=== PATIENT | male | born 1980 | race Caucasian/White ===

== ENCOUNTER 2021-12-05 15:40 | Inpatient (IN) | payer SELFPAY ==
[~2021-12-05] VITALS: Ht 157.5 cm; Wt 75.3 kg
[2021-12-05 16:53] LABS: BASOPHILS % 1.1 % (0.0-2.0); EOSINOPHILS % 7.2 % (0.0-5.0); HEMATOCRIT. 37.4 % (42.0-52.0); HEMOGLOBIN. 12.4 g/dL (14.0-18.0); LYMPHOCYTES % 13.7 % (20.0-50.0); MEAN CORPUSCULAR HEMOGLOBIN 31.1 pg (28.0-32.0); MEAN CORPUSCULAR VOLUME 93.4 fL (80.0-94.0); MEAN PLATELET VOLUME 7.8 fl (7.4-10.4); MONOCYTES % 9.7 % (2.0-8.0); NEUTROPHILS % 68.3 % (40.0-76.0); PLATELET 138 x1000/uL (130-400); RED CELL DISTRIBUTION WIDTH 15.2 % (11.6-14.6)
[2021-12-05 17:03] LABS: CHLORIDE 105 mEq/L (98-107)
[2021-12-05 17:04] LABS: INR 1.3; PROTHROMBIN TIME 13.4 sec (9.6-11.0)
[2021-12-05] MEDS ORDERED: LORAZEPAM 2MG/ML CPJ IV ONE (17:15)
[2021-12-05] MEDS ORDERED: ASPIRIN 325MG EC TABLET PO ONE (17:15)
[2021-12-05 17:18] LABS: ETHANOL BLOOD 13 mg/dL
[2021-12-05] MEDS ORDERED: FUROSEMIDE 20MG/2ML VIAL IVP NR (20:15)
[2021-12-05] MEDS ORDERED: NA PHOS,M-B/NA PHOS,DI-BA ENEMA 118ML PR PRN (21:15)
[2021-12-05] MEDS ORDERED: DOCUSATE SODIUM 100MG CAPSULE PO PRN (21:15)
[2021-12-05] MEDS ORDERED: ONDANSETRON HCL 4MG/2ML INJ IV PRN (21:15)
[2021-12-05] MEDS ORDERED: KETOROLAC 15MG/ML VIAL IV PRN (21:15)
[2021-12-05] MEDS ORDERED: IPRATROPIUM/ALBUTEROL 0.5-3(2.5)MG/3ML NEB NEB PRN (21:15)
[2021-12-05] MEDS ORDERED: CLONIDINE 0.1MG TABLET PO PRN (21:15)
[2021-12-05] MEDS ORDERED: ACETAMINOPHEN 325MG TABLET PO PRN ×2 (21:15)
[2021-12-05] MEDS ORDERED: ZOLPIDEM TARTRATE 5MG TABLET PO PRN (21:15)
[2021-12-05] MEDS ORDERED: MAGNESIUM/ALUMINUM HYDROXIDE/SIMETHICONE 30ML UDC PO PRN (21:15)
[2021-12-05] MEDS ORDERED: GUAIFENESIN 200MG/10ML SUGAR FREE UDC PO PRN (21:15)
[2021-12-05] MEDS ORDERED: NITROGLYCERIN 0.4MG TABLET SL SL PRN (21:15)
[2021-12-05] MEDS ORDERED: ENOXAPARIN 40MG/0.4ML SYR SUBCUT SCH (22:00)
[2021-12-05 22:29] LABS: CREATINE KINASE MB FRACTION 5.5 ng/mL (0.5-3.6)
[2021-12-05] MEDS ORDERED: POTASSIUM CHLORIDE 20MEQ TABLET SR PO NR (22:30)
[2021-12-05 22:47] LABS: PHOSPHORUS 3.4 mg/dL (2.5-4.9)
[2021-12-05 23:40] VITALS: BP 123/97
[2021-12-06] VITALS: BP 123/97
[2021-12-06 04:00] VITALS: BP 126/86
[2021-12-06 07:01] LABS: CREATINE KINASE MB FRACTION 5.3 ng/mL (0.5-3.6)
[2021-12-06 08:00] VITALS: BP 133/93
[2021-12-06] MEDS ORDERED: ASPIRIN 325MG EC TABLET PO SCH (09:00)
[2021-12-06] MEDS ORDERED: FAMOTIDINE 20MG TABLET PO SCH (09:00)
[2021-12-06] MEDS ORDERED: ASPI-1406 MT (10:31)
[2021-12-06 12:00] VITALS: BP 111/72
[2021-12-06 13:55] VITALS: BP 111/72
== END 2021-12-06 15:00 | disposition home or self-care (01) | DRG 190 ==
LOC: ER 15:40 → MICUSO 20:49 → 8WST 23:51
PROVIDERS: ADMIT Internal Medicine; ATTEND Internal Medicine
DX: I21.4 Non-ST elevation (NSTEMI) myocardial infarction (principal); E87.6 Hypokalemia; Z20.822 Contact with and (suspected) exposure to COVID-19; R74.01 Elevation of levels of liver transaminase levels; F19.10 Other psychoactive substance abuse, uncomplicated; F41.9 Anxiety disorder, unspecified; F15.10 Other stimulant abuse, uncomplicated
CPT/HCPCS: 36415; 71045; 80053; 80061; 80320; 82550; 82553; 83036; 83735; 83880; 84100; 84484; 85025; 87426; 93005; 93306; 93970; 99285; J1650; J1940; J2060; G0480